=== PATIENT | female | born 1980 | race African-American/Black ===

== ENCOUNTER 2016-12-26 18:18 | Emergency (ER) | payer OTHER ==
[~2016-12-26] VITALS: Ht 165.1 cm; Wt 48.0 kg
[~2016-12-26 18:18] MED LIST: BENA25TA3 PO; EPIP0.3I SQ; FAMO1TAB37 PO; PERM5CRE TOPICAL; PRED20 PO
[2016-12-26 18:20] VITALS: BP 103/57; PULSE 101; RESP 16; TEMP 98.5; O2SAT 99
[2016-12-26] MEDS ORDERED: DOXY100C PO (21:47)
[2016-12-26] MEDS ORDERED: METR-1 PO (22:32)
== END 2016-12-26 18:44 | disposition left against medical advice (07) ==
LOC: NEPD 18:18
DX: K08.89 Other specified disorders of teeth and supporting structures (principal); Z53.21 Procedure and treatment not carried out due to patient leaving prior to being seen by health care provider
CPT/HCPCS: 99281

== ENCOUNTER 2016-12-26 21:09 | Emergency (ER) | payer OTHER ==
[~2016-12-26] VITALS: Ht 170.2 cm; Wt 55.0 kg
[2016-12-26 21:10] VITALS: BP 103/55; PULSE 86; RESP 16; TEMP 98.8; O2SAT 98
[2016-12-26] MEDS ORDERED: ACETAMINOPHEN 325 MG TAB PO ONE (21:45)
[2016-12-26] MEDS ORDERED: GENTAMICIN SULFATE 80 MG/2 ML VIAL IM ONE (21:45)
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
[2016-12-26] MEDS ORDERED: DOXY100C PO (21:47)
[2016-12-26 21:59] LABS: BLOOD, URINE NEG (NEG); COMMENT (UR) CULT NOT INDICATED; CULTURE IF INDICATED CULT NOT INDICATED; GLUCOSE,URINE NEG (NEG); KETONE, URINE TRACE mg/dL (NEG); MUCUS URINE FEW /lpf (OCC); NITRITE,URINE NEG (NEG); PH, URINE 5.5 (5.0-8.5); SQUAMOUS EPITHELIAL CELL URINE 9 /hpf (0-5); URINE COLOR YELLOW (YELLW/STRAW)
[2016-12-26] MEDS ORDERED: METR-1 PO (22:32)
[2016-12-27 00:10] LABS: CHLAMYDIA PCR NOT DETECTED (NOT DETECT); NEISSERIA PCR NOT DETECTED (NOT DETECT)
== END 2016-12-26 22:58 | disposition home or self-care (01) ==
LOC: NEPD 21:09
DX: N76.0 Acute vaginitis (principal); A59.01 Trichomonal vulvovaginitis; K08.89 Other specified disorders of teeth and supporting structures; H92.02 Otalgia, left ear; F17.200 Nicotine dependence, unspecified, uncomplicated; Z86.59 Personal history of other mental and behavioral disorders; Z87.19 Personal history of other diseases of the digestive system; Z87.448 Personal history of other diseases of urinary system; Z87.39 Personal history of other diseases of the musculoskeletal system and connective tissue
CPT/HCPCS: 81001; 84703; 87210; 87491; 87591; 96372; 99284; J1580

== ENCOUNTER 2017-01-07 04:58 | Emergency (ER) | payer OTHER ==
[~2017-01-07] VITALS: Ht 165.1 cm; Wt 48.0 kg
[~2017-01-07 04:58] MED LIST changes: -BENA25TA3 PO; +DOXY100C PO; -EPIP0.3I SQ; -FAMO1TAB37 PO; +METR-1 PO; -PERM5CRE TOPICAL; -PRED20 PO
[2017-01-07 04:59] VITALS: BP 112/81; PULSE 78; RESP 16; TEMP 98; O2SAT 100
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
[2017-01-07] MEDS ORDERED: METR-1 PO (05:42)
--- NOTE | 2017-01-07 06:16 | RADRPT ---
EXAM DATE/TIME: 01/07/2017 05:53 [facility] COMPARISON: No previous studies available for comparison. INDICATIONS : Left proximal arm pain from a fall. MEDICAL HISTORY : None. SURGICAL HISTORY : Appendectomy. ENCOUNTER: Initial ACUITY: 1 day PAIN SCORE: 4/10 LOCATION: Left shoulder FINDINGS: Two view examination of the left shoulder demonstrates no evidence of fracture or dislocation. The g lenohumeral and acromioclavicular joints are maintained. Bony mineralization is normal. CONCLUSION: Unremarkable limited examination of the left shoulder. Jon Berkowitz MD on January 07, 2017 at 6:14 Board Certified Radiologist. This report was verified electronically.
[2017-01-07] MEDS ORDERED: IBUP-232 PO (06:20)
[2017-01-07] MEDS ORDERED: IBUPROFEN 600 MG TAB PO ONE (06:30)
== END 2017-01-07 06:41 | disposition home or self-care (01) ==
LOC: NEPE 04:58
DX: M25.512 Pain in left shoulder (principal); R51 Headache; F17.200 Nicotine dependence, unspecified, uncomplicated; Z76.0 Encounter for issue of repeat prescription; Z86.59 Personal history of other mental and behavioral disorders; Z87.19 Personal history of other diseases of the digestive system; Z87.440 Personal history of urinary (tract) infections; Z87.39 Personal history of other diseases of the musculoskeletal system and connective tissue; W10.9XXA Fall (on) (from) unspecified stairs and steps, initial encounter
CPT/HCPCS: 73030; 99283

== ENCOUNTER 2017-01-21 10:52 | Emergency (ER) | payer OTHER ==
[~2017-01-21] VITALS: Ht 165.1 cm; Wt 47.0 kg
[~2017-01-21 10:52] MED LIST changes: +IBUP-232 PO
[2017-01-21 10:55] VITALS: BP 131/76; PULSE 74; RESP 13; TEMP 99.1; O2SAT 100
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
[2017-01-21] MEDS ORDERED: AMOXICILLIN 875 MG TAB PO ONE (11:30)
[2017-01-21] MEDS ORDERED: IBUPROFEN 800 MG TAB PO ONE (11:30)
[2017-01-21] MEDS ORDERED: NYSTAT/DIPHENHY/LIDO MOUTHWASH (Adult) 120ML SWISH-SPIT ONE (11:30)
[2017-01-21] MEDS ORDERED: NON-500T13 PO (11:33)
[2017-01-21] MEDS ORDERED: IBUP800T23 PO (11:33)
[2017-01-21] MEDS ORDERED: AMOX875T PO (11:33)
== END 2017-01-21 12:17 | disposition home or self-care (01) ==
LOC: NEPK 10:52
DX: K08.89 Other specified disorders of teeth and supporting structures (principal); Z72.0 Tobacco use
CPT/HCPCS: 99284

== ENCOUNTER 2017-04-15 03:13 | Emergency (ER) | payer OTHER ==
[~2017-04-15] VITALS: Ht 165.1 cm; Wt 56.5 kg
[~2017-04-15 03:13] MED LIST changes: +DESO1TAB15 PO; -DOXY100C PO; +IBUP800T23 PO
[2017-04-15 03:16] VITALS: BP 113/80; PULSE 82; RESP 16; TEMP 97.9; O2SAT 97
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
[2017-04-15] MEDS ORDERED: IBUPROFEN 600 MG TAB PO ONE (03:45)
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
== END 2017-04-15 05:44 | disposition home or self-care (01) ==
LOC: NEPE 03:13
DX: R51 Headache (principal); F17.200 Nicotine dependence, unspecified, uncomplicated; Z86.59 Personal history of other mental and behavioral disorders; Z87.19 Personal history of other diseases of the digestive system; Z87.440 Personal history of urinary (tract) infections; Z87.39 Personal history of other diseases of the musculoskeletal system and connective tissue; Y04.2XXA Assault by strike against or bumped into by another person, initial encounter
CPT/HCPCS: 70450; 70486; 99285

== ENCOUNTER 2017-06-15 02:30 | Emergency (ER) | payer OTHER ==
[~2017-06-15] VITALS: Ht 165.1 cm; Wt 49.0 kg
[~2017-06-15 02:30] MED LIST changes: -IBUP-232 PO; -IBUP800T23 PO; -METR-1 PO
[2017-06-15 02:31] VITALS: BP 122/64; PULSE 91; RESP 16; TEMP 98.7; O2SAT 97
[2017-06-15] MEDS ORDERED: DOXYCYCLINE HYCLATE 100 MG CAP PO ONE (03:00)
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
[2017-06-15 03:47] LABS: BLOOD, URINE NEG (NEG); COMMENT (UR) CULT NOT INDICATED; CULTURE IF INDICATED CULT NOT INDICATED; GLUCOSE,URINE NEG (NEG); KETONE, URINE NEG (NEG); MUCUS URINE FEW /lpf (OCC); NITRITE,URINE NEG (NEG); SQUAMOUS EPITHELIAL CELL URINE 3 /hpf (0-5); URINE COLOR YELLOW (YELLW/STRAW)
[2017-06-15] MEDS ORDERED: METR-1 PO (03:56)
[2017-06-15] MEDS ORDERED: DOXY100C PO (03:56)
[2017-06-15 05:43] LABS: CHLAMYDIA PCR NOT DETECTED (NOT DETECT); NEISSERIA PCR NOT DETECTED (NOT DETECT)
== END 2017-06-15 04:40 | disposition home or self-care (01) ==
LOC: NEPC 02:30
DX: N73.9 Female pelvic inflammatory disease, unspecified (principal); N76.0 Acute vaginitis; F31.9 Bipolar disorder, unspecified; F41.9 Anxiety disorder, unspecified; K21.9 Gastro-esophageal reflux disease without esophagitis; F17.210 Nicotine dependence, cigarettes, uncomplicated
CPT/HCPCS: 81001; 84703; 87210; 87491; 87591; 99284

== ENCOUNTER 2017-09-09 04:15 | Emergency (ER) | payer OTHER ==
[~2017-09-09 04:15] MED LIST changes: -DESO1TAB15 PO; +DOXY100C PO; +METR-1 PO
[2017-09-09 04:20] VITALS: BP 141/67; PULSE 113; RESP 14; TEMP 99.1; O2SAT 99
== END 2017-09-09 04:25 | disposition left against medical advice (07) ==
LOC: NED 04:20
DX: L98.9 Disorder of the skin and subcutaneous tissue, unspecified (principal)
CPT/HCPCS: 99281

== ENCOUNTER 2017-10-09 18:26 | Emergency (ER) | payer OTHER ==
[2017-10-10] MEDS ORDERED: DOXY100C PO (01:18)
[2017-10-10] MEDS ORDERED: METR-1 PO (01:18)
== END 2017-10-09 19:16 | disposition left against medical advice (07) ==
LOC: NED 18:26
DX: L29.9 Pruritus, unspecified (principal); Z53.21 Procedure and treatment not carried out due to patient leaving prior to being seen by health care provider
CPT/HCPCS: 99281

== ENCOUNTER 2017-10-09 22:12 | Emergency (ER) | payer OTHER ==
[~2017-10-09] VITALS: Ht 165.1 cm; Wt 50.0 kg
[2017-10-09 22:26] VITALS: BP 120/74; PULSE 80; RESP 16; TEMP 98.5; O2SAT 99
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
[2017-10-09 23:57] LABS: BILIRUBIN, URINE NEG (NEG); BLOOD, URINE LARGE (NEG); GLUCOSE,URINE NEG (NEG); HYALINE CAST, URINE 1 /lpf (RARE); KETONE, URINE NEG (NEG); MUCUS URINE FEW /lpf (OCC); NITRITE,URINE NEG (NEG); PH, URINE 6.5 (5.0-8.5); SQUAMOUS EPITHELIAL CELL URINE 5 /hpf (0-5); URINE COLOR YELLOW (YELLW/STRAW); URINE LEUKOCYTE ESTERASE TRACE (NEG)
[2017-10-10] MEDS ORDERED: DOXY100C PO (01:18)
[2017-10-10] MEDS ORDERED: METR-1 PO (01:18)
== END 2017-10-10 03:50 | disposition home or self-care (01) ==
LOC: NEPD 22:12
DX: N76.0 Acute vaginitis (principal); B96.89 Other specified bacterial agents as the cause of diseases classified elsewhere; F31.9 Bipolar disorder, unspecified; F17.210 Nicotine dependence, cigarettes, uncomplicated; Z79.899 Other long term (current) drug therapy; Z88.1 Allergy status to other antibiotic agents
CPT/HCPCS: 81001; 84703; 87210; 87491; 87591; 99283